=== PATIENT | male | born 1970 | race African-American/Black ===

== ENCOUNTER 2018-01-07 23:22 | Emergency (ER) | payer OTHER ==
[~2018-01-07] VITALS: Ht 180.3 cm; Wt 106.6 kg
--- NOTE | ~2018-01-07 | EKG ---
[address] [address] ELECTROCARDIOGRAM REPORT Name: ELIAS QUIROZ [id number] Admission: 01/07/18 Attend Phys: Discharge: 01/08/18 Date of : 68 Report #: [id number] THIS REPORT FOR: //name// [facility] ED Test Date: 2018-01-07 Test Time: 23:52:49 Pat Name: ELIAS QUIROZ Department: Room: Gender: Automotive Electrician: MZOOK : 1970 Requested By: Min Sánchez Order Number: [id number] MD: Fidencio Merlos Measurements Intervals [place] Rate: 72 P: 39 WA: 175 QRS: 6 QRSD: 83 T: 18 QT: 362 QTc: 397 Interpretive Statements Sinus rhythm No significant abnormality No previous ECG available for comparison Electronically Signed On 01-10-2018 13:30:34 CDT by Fidencio Merlos [email or web address] <ELECTRONICALLY SIGNED> By: Fidencio Merlos MD, [facility] 01/10/18 1330 2352 2352 Fidencio Merlos MD, FACC /EPI
[2018-01-07] MEDS ORDERED: ASPIRIN325 (23:25)
[2018-01-08 00:54] LABS: ABSOLUTE NEUTROPHILS 2.7 thou/uL (1.4-8.2); BASOPHILS 0.8 % (0.0-2.0); EOSINOPHILS 5.8 % (0.0-3.0); HEMOGLOBIN 14.4 gm/dL (14.0-18.0); LYMPHOCYTES 37.5 % (24.0-44.0); MCH 28.4 pg (26.0-34.0); MCHC 33.6 g/dL (28.0-37.0); MCV 84.5 fL (80.0-100.0); PLATELET COUNT 255 thou/uL (150-400); POLYS 47.9 % (36.0-66.0); RBC 5.09 mil/uL (4.50-6.00); RDW 13.7 % (10.5-14.5); WBC 5.6 thou/uL (4.0-11.0)
[2018-01-08 01:09] LABS: ANION GAP 8 mmol/L (7-16); BUN 14 mg/dL (7-18); CALCIUM 9.5 mg/dL (8.5-10.1); CHLORIDE 104 mmol/L (98-107); CO2 28 mmol/L (21-32); CREATININE 1.2 mg/dL (0.7-1.3); GLUCOSE 97 mg/dL (74-106); POTASSIUM 4.5 mmol/L (3.5-5.1); SODIUM 140 mmol/L (136-145)
[2018-01-08 01:17] LABS: TROPONIN-I < 0.04 ng/mL (<0.06)
== END 2018-01-08 01:55 | disposition home or self-care (01) ==
LOC: ER 23:22
PROVIDERS: Emergency Medicine
DX: M25.512 Pain in left shoulder (principal)